=== PATIENT | male | born 1945 | race Caucasian/White ===

== ENCOUNTER 2021-11-27 12:16 | Emergency (ER) | payer OTHER ==
[2021-11-27 12:27] VITALS: BMI 27.3
[2021-11-27] MEDS ORDERED: SODIUM CHLORIDE 1,000 ML IV SCH (12:45)
[2021-11-27 13:38] LABS: BASO % 2.6 % (0-2.0); EOS % 5.5 % (0-4.5); HEMATOCRIT 38.2 % (35.4-49); HEMOGLOBIN 12.7 GM/dL (11.7-16.9); LYMPH % 28.6 % (8-40); MCH 28.7 pg (25.7-33.7); MCHC 33.1 g/dl (32.0-35.9); MEAN CELL VOLUME 86.6 fl (80-96); MEAN PLT VOLUME 7.4 fl (7.5-11.1); MONO % 13.6 % (3.8-10.2); NEUT % 49.7 % (42.8-82.8); PLATELET COUNT 247 10^3/uL (134-434); RBC 4.41 M/mm3 (4.00-5.60); RDW 15.7 % (11.9-15.9); WHITE BLOOD COUNT 4.4 K/mm3 (4.0-10.0)
[2021-11-27 13:47] LABS: INR 1.06 (0.83-1.09); PROTHROMBIN TIME (PATIENT) 12.2 SEC (9.7-13.0)
[2021-11-27 13:49] LABS: URINE APPEARANCE CLEAR; URINE BILIRUBIN NEGATIVE (NEGATIVE); URINE COLOR YELLOW; URINE GLUCOSE (UA) NEGATIVE (NEGATIVE); URINE KETONE NEGATIVE (NEGATIVE); URINE LEUK ESTERASE NEGATIVE (NEGATIVE); URINE NITRITE NEGATIVE (NEGATIVE); URINE PROTEIN TRACE (NEGATIVE); URINE UROBILINOGEN 0.2 mg/dL (0.2-1.0)
[2021-11-27 13:50] LABS: ACTIVATED PTT 34.5 SECONDS (25.2-36.5)
[2021-11-27 14:03] LABS: ALBUMIN 3.4 g/dl (3.4-5.0); BLOOD UREA NITROGEN 16.2 mg/dL (7-18); CALCIUM 8.8 mg/dL (8.5-10.1)
[2021-11-27 14:08] LABS: BILIRUBIN,TOTAL 0.5 mg/dL (0.2-1); TOT PROT 7.5 g/dl (6.4-8.2)
[2021-11-27] MEDS ORDERED: HEPARIN NA (PORCINE) 5,000 UNITS/ML 1ML VIAL IVPUSH PRN ×2 (15:01)
[2021-11-27] MEDS ORDERED: HEPARIN - 25,000 UNIT in SODIUM CHLORIDE 495 ML IV SCH (15:15)
[2021-11-27] MEDS ORDERED: HEPARIN INFUSION - 25,000 UNITS/500 ML INFUS.BAG IVPB ONE (15:31)
[2021-11-27] MEDS ORDERED: VALSARTAN 160 MG TABLET PO ONE (17:21)
[2021-11-27] MEDS ORDERED: VALSARTAN 80 MG TABLET ONE (17:57)
[2021-11-27] MEDS ORDERED: LOSARTAN POTASSIUM 50 MG TABLET PO ONE (18:03)
[2021-11-27] MEDS ORDERED: CARVEDILOL 6.25 MG TABLET (FP) PO ONE (18:03)
[2021-11-27] MEDS ORDERED: LOSARTAN POTASSIUM 50 MG TABLET ONE (18:05)
[2021-11-27] MEDS ORDERED: CARVEDILOL 6.25 MG TABLET (FP) ONE (18:05)
[2021-11-27 19:06] VITALS: BP 178/90; PULSE 70; TEMP 98.4
== END 2021-11-27 19:04 | disposition short-term general hospital (02) ==
LOC: JER 12:16
PROC: 3E033GC Introduction of Other Therapeutic Substance into Peripheral Vein, Percutaneous Approach (ICD-10-PCS; principal; 2021-11-27)
PROC: 3E033GC Introduction of Other Therapeutic Substance into Peripheral Vein, Percutaneous Approach (ICD-10-PCS; 2021-11-27)
PROC: 3E033GC Introduction of Other Therapeutic Substance into Peripheral Vein, Percutaneous Approach (ICD-10-PCS; 2021-11-27)
DX: R41.82 Altered mental status, unspecified (principal)
CPT/HCPCS: 0241U-QW; 36415; 70450-TC; 70496-TC; 70498-TC; 71045-TC-FY; 80053; 80061; 81003; 83036; 83605; 84484; 85025; 85610; 85730; 86850; 86900; 86901; 93005; 93010; 99285-25; J1644; Q9967

== ENCOUNTER 2021-12-28 09:47 | Emergency (ER) | payer OTHER ==
[2021-12-28 09:51] VITALS: BP 160/84; PULSE 84; TEMP 99.4; BMI 26.1
[2021-12-28] MEDS ORDERED: ACETAMINOPHEN 325 MG TABLET (FP) PO ONE (10:58)
[2021-12-28] MEDS ORDERED: ACETAMINOPHEN 325 MG TABLET (FP) ONE (11:13)
== END 2021-12-28 11:19 | disposition home or self-care (01) ==
LOC: JER 09:47 → JERFT 09:47
DX: M79.671 Pain in right foot (principal)
CPT/HCPCS: 73630-TC-RT-FY; 99283-25

== ENCOUNTER 2022-07-05 15:38 | Emergency (ER) | payer OTHER ==
[2022-07-05 15:56] VITALS: BP 116/74; PULSE 74; RESP 16; TEMP 100.4; BMI 29.2
[2022-07-05] MEDS ORDERED: DEXAMETHASONE SOD PHOSPHATE 10 MG/1 ML VIAL IM ONE (17:27)
[2022-07-05] MEDS ORDERED: DEXAMETHASONE SOD PHOSPHATE 10 MG/1 ML VIAL ONE (17:30)
== END 2022-07-05 19:49 | disposition home or self-care (01) ==
LOC: JER 15:38 → JERFT 15:38
PROC: 3E0233Z Introduction of Anti-inflammatory into Muscle, Percutaneous Approach (ICD-10-PCS; principal; 2022-07-05)
DX: U07.1 COVID-19 (principal)
CPT/HCPCS: 0241U-QW; 99284-25; J1100